=== PATIENT | female | born 1975 | race Hispanic/Latino ===

== ENCOUNTER 2019-10-17 10:08 | Outpatient (CLI) | payer MEDICARE ==
[2019-10-17 12:45] LABS: Hemoglobin 8.9 g/dL (12.0-16.0); Mean Corpuscular HGB CONC 30.2 g/dL (32.0-36.0); Mean Corpuscular Hemoglobin 23.8 pg (27.0-31.0); Mean Corpuscular Volume 78.6 fL (78.0-98.0); Mean Platelet Volume 7.1 fL (7.4-10.4); Platelet Count 554 thou/uL (130-400); RBC Distribution Width 18.2 % (11.5-14.5); Red Blood Cell (RBC) Count 3.76 mill/uL (4.20-5.40); White Blood Cell (WBC) Count 7.4 thou/uL (4.8-10.8)
[2019-10-17 13:05] LABS: ALT (SGPT) 26 U/L (8-55); AST (SGOT) 27 U/L (5-34); Albumin 4.2 g/dL (3.5-5.0); Alkaline Phosphatase 50 U/L (40-110); Anion Gap 12 mmol/L (10-20); BUN (Urea Nitrogen) 11 mg/dL (7.0-18.7); Bilirubin, Total 0.5 mg/dL (0.2-1.2); Calc. Creatinine Clearance 0 mL/min (70-130); Calcium 9.1 mg/dL (7.8-10.44); Carbon Dioxide 25 mmol/L (22-29); Chloride 103 mmol/L (98-107); Estimated GFR-MDRD Greater than 90; Globulin 3.5 g/dL (2.4-3.5); Glucose 89 mg/dL (70-105); Potassium 3.3 mmol/L (3.5-5.1); Protein, Total 7.7 g/dL (6.0-8.3); Sodium 137 mmol/L (136-145)
[2019-10-17 13:07] LABS: BHCG - Serum Negative (NEGATIVE); Pregs Control Background? CLEAR/WHITE (CLR/WHITE); Pregs Control Bar Appear? YES (CONTROL BAR)
--- NOTE | 2019-10-18 17:56 | EKG ---
Test Reason : Blood Pressure : / mmHG Vent. Rate : 077 BPM Atrial Rate : 077 BPM P-R Int : 172 ms QRS Dur : 078 ms QT Int : 400 ms P-R-T Axes : 068 076 033 degrees QTc Int : 452 ms Normal sinus rhythm Normal ECG No previous ECGs available Confirmed by Marika OMER ([id number]) on 10/18/2019 5:55:42 PM Referred By: JESSIE Confirmed By:Marika OMER
== END 2019-10-17 10:09 | disposition home or self-care (01) ==
LOC: LABBT 10:08
PROVIDERS: ATTEND Obstetrics & Gynecology
DX: Z01.818 Encounter for other preprocedural examination (principal)
CPT/HCPCS: 80053; 84703; 85027; 93005; 93010

== ENCOUNTER 2019-10-22 09:00 | Day surgery (SDC) | payer MEDICARE ==
[2019-10-17 10:44] VITALS: BMI 35.9
[2019-10-22] MEDS ORDERED: Famotidine/PF 20 mg/2ml Vial ONE (09:15)
[2019-10-22] MEDS ORDERED: Gabapentin 300 MG CAP ONE (09:15)
[2019-10-22] MEDS ORDERED: CeleCOXIB 100 MG CAP ONE (09:15)
[2019-10-22] MEDS ORDERED: Ondansetron PF 4 MG/2 ML Vial ONE (10:00)
[2019-10-22] MEDS ORDERED: Lidocaine 1% PF 5 ML VIAL ONE (10:00)
[2019-10-22] MEDS ORDERED: Glycopyrrolate 0.2 MG/ML 5 ML SYRINGE ONE (10:00)
[2019-10-22] MEDS ORDERED: Rocuronium Bromide 10 MG/ML (10ML VIAL) ONE (10:00)
[2019-10-22] MEDS ORDERED: Dexamethasone 20 MG/5 ML VIAL ONE (10:00)
[2019-10-22] MEDS ORDERED: PROPOFOL 200 MG/20 ML VIAL ONE (10:00)
[2019-10-22] MEDS ORDERED: Fentanyl 250 MCG/5 ML VIAL ONE (13:21)
[2019-10-22] MEDS ORDERED: Midazolam HCl 2 mg/2 ml Vial ONE (13:21)
[2019-10-22] MEDS ORDERED: Lidocaine 1% w/Epinephrine 1:100K 20 ML VIAL ONE (13:22)
[2019-10-22] MEDS ORDERED: Bupivacaine 0.25% HCL 30 ML VIAL ONE (13:22)
[2019-10-22] MEDS ORDERED: Morphine 4 MG/ML VIAL SLOW IVP PRN (15:57)
[2019-10-22] MEDS ORDERED: Ondansetron PF 4 MG/2 ML Vial IVP PRN (15:57)
[2019-10-22] MEDS ORDERED: HYDROcodone/Acetaminophen 5/325 mg Tablet PO PRN ×2 (15:57)
[2019-10-22] MEDS ORDERED: Promethazine HCl 25 MG/ML VIAL IM PRN ×2 (15:57→16:11)
[2019-10-22] MEDS ORDERED: Simethicone Chewable 80 MG TAB PO PRN (15:57)
[2019-10-22] MEDS ORDERED: diphenhydrAMINE 25 MG CAP PO PRN (15:57)
[2019-10-22] MEDS ORDERED: Zolpidem Tartrate 5 MG TAB PO PRN (15:57)
[2019-10-22] MEDS ORDERED: Bisacodyl 10 MG SUPP PR PRN (15:57)
[2019-10-22] MEDS ORDERED: Ondansetron HCl/PF 4 MG/2 ML Vial IVP PRN (16:11)
[2019-10-22] MEDS ORDERED: Promethazine HCl 25 MG/ML VIAL SLOW IVP PRN (16:11)
[2019-10-22] MEDS ORDERED: Fentanyl 100 MCG/2 ML VIAL ONE (16:50)
[2019-10-22] MEDS: Ketorolac Tromethamine 30 MG/ML VIAL IVP SCH (19:40)
[2019-10-22] MEDS: Sodium Chloride 0.9% 1,000 ML IV SCH (19:42)
[2019-10-23] MEDS: Ketorolac Tromethamine 30 MG/ML VIAL IVP SCH (01:10)
[2019-10-23] MEDS: Sodium Chloride 0.9% 1,000 ML IV SCH ×2 (01:16→08:54)
[2019-10-23 05:55] LABS: Hemoglobin 8.2 g/dL (12.0-16.0); Mean Corpuscular HGB CONC 31.4 g/dL (32.0-36.0); Mean Corpuscular Hemoglobin 24.7 pg (27.0-31.0); Mean Corpuscular Volume 78.4 fL (78.0-98.0); Mean Platelet Volume 6.8 fL (7.4-10.4); Platelet Count 439 thou/uL (130-400); RBC Distribution Width 17.9 % (11.5-14.5); Red Blood Cell (RBC) Count 3.33 mill/uL (4.20-5.40); White Blood Cell (WBC) Count 12.3 thou/uL (4.8-10.8)
[2019-10-23] MEDS ORDERED: Ibuprofen 800 MG TAB PO SCH (06:00)
[2019-10-23 06:04] LABS: Anion Gap 9 mmol/L (10-20); BUN (Urea Nitrogen) 9 mg/dL (7.0-18.7); Calc. Creatinine Clearance 170 mL/min (70-130); Calcium 8.4 mg/dL (7.8-10.44); Carbon Dioxide 29 mmol/L (22-29); Chloride 103 mmol/L (98-107); Estimated GFR-MDRD Greater than 90; Glucose 135 mg/dL (70-105); Potassium 3.1 mmol/L (3.5-5.1); Sodium 138 mmol/L (136-145)
[2019-10-23 07:45] VITALS: BP 135/65; TEMP 98.7
[2019-10-23] MEDS ORDERED: Potassium Chloride 20 MEQ TAB PO SCH (08:15)
--- NOTE | 2019-10-23 08:28 | OP ---
DATE OF PROCEDURE: 10/22/2019 PREOPERATIVE DIAGNOSES: 1. Abnormal uterine bleeding with menorrhagia. 2. Suspected adenomyosis. POSTOPERATIVE DIAGNOSES: 1. Abnormal uterine bleeding with menorrhagia. 2. Suspected adenomyosis. PROCEDURE PERFORMED: Robotic-assisted total laparoscopic hysterectomy with bilateral salpingectomy. FILLING MACHINE SET UP MECHANIC: Gaby Cruz PA-C. COMPLICATIONS: None. ANESTHESIA: General. ESTIMATED BLOOD LOSS: 50 mL. IV FLUIDS: 1000 mL. URINE OUTPUT: 320 mL of clear urine. INDICATIONS FOR THE PROCEDURE: Ms. Dozier is a 44-year-old, G4, P4, who presented to clinic with complaints of heavy menstrual bleeding as well as dysmenorrhea. She underwent evaluation with an approximately 12 cm uterus, otherwise normal in appearance and negative endometrial biopsy. The patient had failed medical management in the past with prior definitive surgical management. DESCRIPTION OF PROCEDURE: The patient was brought to the operating room. She was placed under general anesthesia. The patient was placed in dorsal lithotomy position using Errol stirrups. She was prepped and draped in a sterile fashion. An official time-out was performed. She was given 2 g of Ancef for surgical prophylaxis. A single-sided speculum was placed in the vagina. The anterior aspect of the cervix was grasped using a single-tooth tenaculum. The cervix was sequentially dilated using Neo dilators. The uterus was sounded to approximately 9 cm. The CAILIN manipulator was inserted using an 8 cm length and 4 cm cup and appropriately secured to the ectocervix. A Curiel catheter was also placed. Gloves were changed. Attention was turned to the abdominal portion. A supraumbilical incision was made using a scalpel, and the Veress needle was inserted at this site, noting a normal pressure. The abdomen was insufflated using carbon dioxide. A 12-mm trocar was placed at this site. The camera was then inserted and the anatomy underlying this section was evaluated noting normal in appearance. The patient was placed in Trendelenburg position. The pelvic anatomy was evaluated, noting approximately 9 to 10 cm uterus, evidence of a prior tubal ligation. Normal-appearing ovaries and bilateral ureteral peristalsis. The salon assistant ports were then placed, one right and one left robotic ports were placed. An additional 11 mm right salon assistant port was placed and all were placed using local anesthesia and under direct visualization. The instruments were then inserted, and the robot was docked to the patient. The patient was turned to the left side. The remaining portion of the left fallopian tube was elevated, coagulated, transected, removing it. The left round ligament was then coagulated multiple times and transected. The left utero-ovarian ligament was coagulated multiple times and transected creating hemostasis. The posterior leaf of the peritoneum was undermined and transected down to the level of the uterosacral ligament. The attention was turned anteriorly, and there were dense adhesions on the anterior aspect due to her previous 4 deliveries. The adhesions were taken down on meticulous dissection using the forceps to undermine the tissue and the monopolar to incise the tissue. The left uterine vessels were then further skeletonized. Attention was turned to the right aspect. The remaining right fallopian tube was then elevated, coagulated, and transected. The right round ligament was coagulated multiple times and transected, and the right utero-ovarian ligament was also coagulated multiple times and transected creating hemostasis. Attention was then turned anteriorly, and the broad ligament was entered, and the adhesions were meticulously dissected on the anterior aspect of the right side as well. The posterior leaf of the broad ligament was undermined and transected. During this process, there was a vein that was a small vein that was lacerated, which required additional cautery. The course of the ureter was identified, and the peritoneum was dissected to allow lateral reflection of the ureter prior to coagulating the vein along the side, and the uterine vessels were then further skeletonized. Attention was turned anteriorly. The bladder reflection was further performed. The bladder was backfilled to delineate the dome of the bladder and then this was removed. The left uterine vessels were then coagulated multiple times and transected. The same was performed on the right aspect. The colpotomy was performed in a circumferential fashion completely the cervical from vaginal tissue. The manipulator was then removed. The was then brought out to the vaginal opening and grasped with ring forceps and this was removed. The vaginal cuff was hemostatic with use of cautery. The pelvis was irrigated and cleared of all clot and debris. The vaginal cuff was closed in a running fashion using #1 Stratafix suture. The pelvis was again irrigated and cleared of all clot and debris. The pelvis was hemostatic. Tisseel was placed along the vaginal cuff and then also along the area of the right pelvic sidewall, where the additional cautery was performed during the procedure. The ureters were noted transperitoneally and both noted to be peristalsing. The instruments were then removed. The robot was undocked. The abdomen was deflated. The patient was taken out of Trendelenburg position. The trocars were removed. The fascia was closed at the supraumbilical site using 0 Vicryl in a figure of eight stitch. The skin incisions were closed using 4-0 Monocryl and Dermabond. The vagina was evaluated noting no lacerations. The patient was extubated without difficulty and placed in supine position. There were no complications. All counts were correct x2. Job ID: [id number]
[2019-10-23] MEDS ORDERED: DULoxetine 60 MG CAP PO SCH (09:00)
[2019-10-23] MEDS ORDERED: Losartan/Hydrochlorothiazide 100 mg/25 mg Tablet PO SCH (09:00)
[2019-10-23] MEDS ORDERED: Folic Acid 1 MG TAB PO SCH (09:00)
--- NOTE | 2019-10-23 11:49 | DIS ---
DATE OF ADMISSION: 10/22/2019 DATE OF DISCHARGE: 10/23/2019 DISCHARGE PHYSICIAN: Alisa Pacheco DO ADMISSION DIAGNOSIS: Postoperative pain control status post robotic-assisted total laparoscopic hysterectomy with bilateral salpingectomy. DISCHARGE DIAGNOSIS: Postoperative pain control status post robotic-assisted total laparoscopic hysterectomy with bilateral salpingectomy. BRIEF HOSPITAL COURSE: Ms. Leni Dozier is a 44-year-old G4, P4, who underwent a robotic-assisted total laparoscopic hysterectomy with bilateral salpingectomy due to dysmenorrhea, menorrhagia, and resulting anemia. Her intraoperative and postoperative courses have been benign. She is meeting all postoperative requirements. She has slight hypokalemia, which will be replaced; however, the remainder of her labs are normal with the exception of slight anemia, which was present preoperatively. MEDICATIONS: 1. Aiken 5/325 one tablet every 6 hours p.r.n. pain, #30 with zero refills. 2. Motrin 800 mg one tablet every 8 hours p.r.n. pain, #60 with zero refills. 3. K-Dur tablet 20 mg tablet take two tablets twice a day for four days for hypokalemia. 4. Ferrous sulfate 325 mg one tablet twice a day, #60 with two refills. 5. It was instructed the patient to hold her Xeljanz until these two weeks postoperatively. FOLLOWUP: Two weeks. DIET: Regular. ACTIVITY: Pelvic rest. No heavy lifting, pushing, and pulling x6 weeks. Job ID: [id number]
--- NOTE | 2019-10-23 11:57 | PRG ---
DATE OF SERVICE: 10/23/2019 HISTORY OF PRESENT ILLNESS: Postoperative day #1 status post robotic-assisted total laparoscopic hysterectomy with bilateral salpingectomy, admitted for pain control. SUBJECTIVE: The patient reports good pain control with oral medications this morning. She is voiding, ambulating, and passing flatus. Denies any nausea, vomiting, fevers, or chills. The patient also denies any vaginal bleeding. Overall, she is doing well. OBJECTIVE: VITAL SIGNS: Blood pressure is 135/65, pulse is 85, and respirations 16, oxygen saturation is 98%, and temperature is 98.7. GENERAL: No acute distress. CARDIOVASCULAR: Regular rate. RESPIRATORY: Unlabored breathing. ABDOMEN: Soft, nondistended. Incision is clean, dry, and intact. Mild tenderness to palpation. EXTREMITIES: No edema. Negative Homans. LABORATORY DATA: Hemoglobin 8.2, preoperative was 8.9. This is expected drop. Platelet count 439. Sodium 138, potassium is 3.1, and creatinine is 0.68. ASSESSMENT: 1. Postoperative day #1, status post robotic-assisted total laparoscopic hysterectomy with bilateral salpingectomy. 2. Hypokalemia. PLAN: We will replace potassium in hospital and as an outpatient. The patient will be stable for discharge home today as she is meeting all postoperative requirements, and she has a followup scheduled in two weeks. Job ID: [id number]
== END 2019-10-23 12:20 | disposition home or self-care (01) ==
LOC: SDC 09:00 → 3SE 18:40 → SDC 10-23 12:20
PROVIDERS: ATTEND Obstetrics & Gynecology
PROC: 0UT94ZZ Resection of Uterus, Percutaneous Endoscopic Approach (ICD-10-PCS; principal; 2019-10-22)
PROC: 0UT74ZZ Resection of Bilateral Fallopian Tubes, Percutaneous Endoscopic Approach (ICD-10-PCS; 2019-10-22)
DX: N80.0 Endometriosis of uterus (principal); N84.0 Polyp of corpus uteri; G89.18 Other acute postprocedural pain; D50.9 Iron deficiency anemia, unspecified; E87.6 Hypokalemia; I10 Essential (primary) hypertension; M06.9 Rheumatoid arthritis, unspecified; F32.9 Major depressive disorder, single episode, unspecified; M79.7 Fibromyalgia; Z79.52 Long term (current) use of systemic steroids; Z79.899 Other long term (current) drug therapy
CPT/HCPCS: 36415; 80048; 85027; 86850; 86900; 86901; 88307; J0131; J0690; J1100; J1885; J2001; J2250; J2270; J2405; J2704; J3010; S0020; S0028

== ENCOUNTER 2022-06-28 09:44 | Outpatient (CLI) | payer MEDICARE | END 2022-06-28 09:45 | disposition home or self-care (01) | LOC: DTY/OP 09:44 | PROVIDERS: ATTEND Family Medicine | DX: E11.65 Type 2 diabetes mellitus with hyperglycemia (principal); Z71.3 Dietary counseling and surveillance | CPT/HCPCS: 97802 ==